=== PATIENT | female | born 1950 | race Caucasian/White ===

== ENCOUNTER 2024-07-27 17:58 | Emergency (ER) | payer MEDICARE ==
--- NOTE | 2024-07-27 18:05 | ED ---
General Adult HPI - General Stated complaint: blood in stool Time Seen by Provider: 07/27/24 18:04 - History of Present Illness Initial comments: Lanie is a 73-year-old female was transferred to our facility from detention after she had an episode of bright red blood per rectum. Patient reports she had a normal bowel movement this morning and then this evening she began feeling crampy abdominal pain worse in the left lower quadrant and then start having loose stools and noted that they were grossly bloody. Staff note that she was also high Po tensive and tachycardic not typical for her. Admitted to an outside hospital [facility] about 1 month ago for bowel obstruction patient is unsure what her treatment was uncertain if she had any b owel resection she does not have an ostomy she did have a PEG tube placed. She has been receiving tube feedings with Jevity 1.5 at 45 mL/h continuous - Related Data Allergies Allergy/AdvReac Type Severity Reaction Status Date / Time Penicillins Allergy Anaphylaxis Verified 07/27/24 19:12 rifampin Allergy Unknown Verified 07/27/24 19:12 Review of Systems ROS Statement: Those systems with pertinent positive or pertinent negative responses have been documented in the HPI. ROS Other: All systems not noted in ROS Statement are negative. General Exam - General Exam Comments Initial Comments: Physical Exam GENERAL: Chronically ill-appearing frail elderly female HENT: Normocephalic, Atraumatic. EYES: PERRL, EOMI PULMONARY: Unlabored respirations. No audible rales rhonchi or wheezing was noted. CARDIOVASCULAR: Tachycardic ABDOMEN: Minimal tenderness in the left lower quadrant Well-healing midline surgical incision consistent with surgery last month PEG tube in place no surrounding erythema no blood PEG tube SKIN: Skin is clear with no lesions or rashes and otherwise unremarkable. : Rectal exam with bright red blood per rectum NEUROLOGIC: Patient is alert and oriented x3 Moving all extremities spontaneously MUSCULOSKELETAL: Diffuse atrophy PSYCHIATRIC: Normal psychiatric evaluation. Course Vital Signs 07/27/24 07/27/24 07/27/24 18:01 18:30 19:00 Temperature 99.4 F Pulse Rate 108 H 113 H 110 H Respiratory 20 17 17 Rate Blood Pressure 97/55 92/52 85/51 O2 Sat by Pulse 100 99 99 Oximetry 07/27/24 19:15 Temperature Pulse Rate 118 H Respiratory 18 Rate Blood Pressure 86/56 O2 Sat by Pulse 99 Oximetry Medical Decision Making - Medical Decision Making Was pt. sent in by a medical professional or institution (, RAJESH, DIE CUTTER APPRENTICE, urgent care, hospital, or detention...) When possible be specific @ -Sent from detention Did you speak to anyone other than the patient for history (EMS, parent, family, police, friend...)? What history was obtained from this source @ -Yes, nurse who assessed patient at detention Did you review nursing and triage notes (agree or disagree)? Why? @ -I reviewed and agree with nursing and triage notes Were old charts reviewed (outside hosp., previous admission, EMS record, old EKG, old radiological studies, urgent care reports/EKG's, detention records)? Report findings @ -Previous labs reviewed Differential Diagnosis (chest pain, altered mental status, abdominal pain women, abdominal pain men, vaginal bleeding, weakness, fever, dyspnea, syncope, headache, dizziness, GI bleed, back pain, seizure, CVA, palpatations, mental health)? @ -Differential GI Bleed: Esophageal varices, aortoenteric fistula, Ryann-Almeida, gastritis, peptic ulcer disease, diverticulosis, inflammatory bowel disease, hemorrhoids, fissure, colitis, malignancy, Meckel's diverticulum, this is not meant to be an all- inclusive list. EKG interpreted by me (3pts min.). @ -As above X-rays interpreted by me (1pt min.). @ -None done CT interpreted by me (1pt min.). @ -No free air U/S interpreted by me (1pt. min.). @ -None done What testing was considered but not performed or refused? (CT, X-rays, U/S, labs)? Why? @ -None What meds were considered but not given or refused? Why? @ -None Did you discuss the management of the patient with other professionals (professionals i.e. RAJESH Dukes, DIE CUTTER APPRENTICE, lab, RT, psych nurse, delinquency prevention social worker, drill doctor, teacher, coastal/harbor defense officer, high risk case manager)? Give summary @ -No Was smoking cessation discussed for >3mins.? @ -No Was critical care preformed (if so, how long)? @ -Yes, 30 minutes Were there social determinants of health that impacted care today? How? (Homelessness, low income, unemployed, alcoholism, drug addiction, transportation, low edu. Level, literacy, decrease access to med. care, alf, rehab)? @ -No Was there de-escalation of care discussed even if they declined (Discuss DNR or withdrawal of care, Hospice)? DNR status @ -No What co-morbidities impacted this encounter? (DM, HTN, Smoking, COPD, CAD, Cancer, CVA, ARF, Chemo, Hep., AIDS, mental health diagnosis, sleep apnea, morbid obesity)? @ -None Was patient admitted / discharged? Hospital course, mention meds given and route, prescriptions, significant lab abnormalities, going to OR and other [facility] [place] info. @ -Discharged Patient was seen and evaluated, history is obtained from the patient during nurse. Physical exam reveals a patient who is pale tachycardic mildly hypotensive with a temperature of 99.4 and left lower quadrant tenderness no gross GI bleed. Labs are obtained hemoglobin is stable white count mildly elevated lactic is mildly elevated. CT scan reveals evidence of colitis. We do not have GI services available today, patient care was discussed with GI physician Dr. Cespedes who agree with plan for transfer for close observation. More hypotensive and decision was made to transfuse due to ongoing blood loss and hemodynamic instability Undiagnosed new problem with uncertain prognosis? @ -Yes, hemorrhagic colitis Drug Therapy requiring intensive monitoring for toxicity (Heparin, Nitro, Insulin, Cardizem)? @ -No Were any procedures done? @ -No Diagnosis/symptom? @ -Colitis Acute, or Chronic, or Acute on Chronic? @ -Acute Uncomplicated (without systemic symptoms) or Complicated (systemic symptoms)? @ -Default Side effects of treatment? @ -No Exacerbation, Progression, or Severe Exacerbation? @ -No Poses a threat to life or bodily function? How? (Chest pain, USA, GA, pneumonia, PE, COPD, DKA, ARF, appy, cholecystitis, CVA, Diverticulitis, Homicidal, Suic idal, threat to staff... and all critical care pts) @ -Potentially due to blood loss - Lab Data Result diagrams: 07/27/24 18:26 07/27/24 18:26 Lab Results 07/27/24 07/27/24 07/27/24 Range/Units 18:26 18:26 18:26 WBC 8.4 (3.8-10.6) k/uL RBC 2.97 L (3.80-5.40) m/uL Hgb 9.0 L (11.4-16.0) gm/dL Hct 28.2 L (34.0-46.0) % MCV 94.8 (80.0-100.0) fL MCH 30.5 (25.0-35.0) pg MCHC 32.1 (31.0-37.0) g/dL RDW 15.7 H (11.5-15.5) % Plt Count 409 (150-450) k/uL MPV 7.3 Neutrophils % 61 % Lymphocytes % 31 % Monocytes % 4 % Eosinophils % 1 % Basophils % 0 % Neutrophils # 5.1 (1.3-7.7) k/uL Lymphocytes # 2.6 (1.0-4.8) k/uL Monocytes # 0.3 (0-1.0) k/uL Eosinophils # 0.1 (0-0.7) k/uL Basophils # 0.0 (0-0.2) k/uL Hypochromasia Slight PT 12.3 (10.0-12.5) sec INR 1.1 (<1.2) APTT 26.2 (22.0-30.0) sec Sodium 131 L (137-145) mmol/L Potassium 4.4 (3.5-5.1) mmol/L Chloride 98 (98-107) mmol/L Carbon Dioxide 28 (22-30) mmol/L Anion Gap 5 mmol/L BUN 12 (7-17) mg/dL Creatinine 0.38 L (0.52-1.04) mg/dL Est GFR (CKD-EPI)AfAm >90 (>60 ml/min/1.73 sqM) Est GFR (CKD-EPI)NonAf >90 (>60 ml/min/1.73 sqM) Glucose 125 H (74-99) mg/dL Plasma Lactic Acid Cruz (0.7-2.0) mmol/L Calcium 8.0 L (8.4-10.2) mg/dL Total Bilirubin 0.4 (0.2-1.3) mg/dL AST 41 H (14-36) U/L ALT 34 (4-34) U/L Alkaline Phosphatase 227 H (38-126) U/L Total Protein 5.8 L (6.3-8.2) g/dL Albumin 2.5 L (3.5-5.0) g/dL Blood Type Blood Type Confirm Blood Type Recheck Bld Type Recheck Status Antibody Screen Crossmatch Spec Expiration Date 07/27/24 07/27/24 07/27/24 Range/Units 18:26 18:26 18:47 WBC (3.8-10.6) k/uL RBC (3.80-5.40) m/uL Hgb (11.4-16.0) gm/dL Hct (34.0-46.0) % MCV (80.0-100.0) fL MCH (25.0-35.0) pg MCHC (31.0-37.0) g/dL RDW (11.5-15.5) % Plt Count (150-450) k/uL MPV Neutrophils % % Lymphocytes % % Monocytes % % Eosinophils % % Basophils % % Neutrophils # (1.3-7.7) k/uL Lymphocytes # (1.0-4.8) k/uL Monocytes # (0-1.0) k/uL Eosinophils # (0-0.7) k/uL Basophils # (0-0.2) k/uL Hypochromasia PT (10.0-12.5) sec INR (<1.2) APTT (22.0-30.0) sec Sodium (137-145) mmol/L Potassium (3.5-5.1) mmol/L Chloride (98-107) mmol/L Carbon Dioxide (22-30) mmol/L Anion Gap mmol/L BUN (7-17) mg/dL Creatinine (0.52-1.04) mg/dL Est GFR (CKD-EPI)AfAm (>60 ml/min/1.73 sqM) Est GFR (CKD-EPI)NonAf (>60 ml/min/1.73 sqM) Glucose (74-99) mg/dL Plasma Lactic Acid Cruz 2.1 H* (0.7-2.0) mmol/L Calcium (8.4-10.2) mg/dL Total Bilirubin (0.2-1.3) mg/dL AST (14-36) U/L ALT (4-34) U/L Alkaline Phosphatase (38-126) U/L Total Protein (6.3-8.2) g/dL Albumin (3.5-5.0) g/dL Blood Type A Negative Blood Type Confirm A Negative Blood Type Recheck No Previous Record Bld Type Recheck Status CABO Indicated Antibody Screen NEGATIVE Crossmatch See Detail Spec Expiration Date 07/30/20242321 Disposition Clinical Impression: Colitis, BRBPR (bright red blood per rectum) Disposition: OTHER INSTITUTION NOT DEFINED Is patient prescribed a controlled substance at d/c from ED?: No Referrals: Kathy Bashir MD [Primary Care Provider] - 1-2 days - Out of Hospital Transfer - Req. Specs Out of Hospital Transfer - Requested Specifics: Other Emergency Center ([facility])
[2024-07-27 18:38] LABS: Basophils % (A) 0 %; Eosinophils # (A) 0.1 k/uL (0-0.7); Eosinophils % (A) 1 %; HCT 28.2 % (34.0-46.0); Hypochromasia Slight; Lymphocytes # (A) 2.6 k/uL (1.0-4.8); Lymphocytes % (A) 31 %; MCH 30.5 pg (25.0-35.0); MCHC 32.1 g/dL (31.0-37.0); MCV 94.8 fL (80.0-100.0); Mean Platelet Volume 7.3; Monocytes # (A) 0.3 k/uL (0-1.0); Monocytes % (A) 4 %; Neutrophils # (A) 5.1 k/uL (1.3-7.7); Neutrophils % (A) 61 %; Platelet Count 409 k/uL (150-450); RBC 2.97 m/uL (3.80-5.40); RDW 15.7 % (11.5-15.5); WBC 8.4 k/uL (3.8-10.6)
[2024-07-27 18:49] LABS: INR 1.1 (<1.2); Partial Thromboplastin Time 26.2 sec (22.0-30.0); Prothrombin Time 12.3 sec (10.0-12.5)
[2024-07-27 18:50] LABS: ALT 34 U/L (4-34); African American GFR (CKD) >90 (>60 ml/min/1.73 sqM); Albumin 2.5 g/dL (3.5-5.0); Anion Gap 5 mmol/L; Blood Urea Nitrogen 12 mg/dL (7-17); Carbon Dioxide 28 mmol/L (22-30); Chloride 98 mmol/L (98-107); Glucose 125 mg/dL (74-99); Non-African American GFR(CKD) >90 (>60 ml/min/1.73 sqM); Sodium 131 mmol/L (137-145); Total Bilirubin 0.4 mg/dL (0.2-1.3); Total Protein 5.8 g/dL (6.3-8.2)
[2024-07-27 19:08] LABS: Potassium 4.4 mmol/L (3.5-5.1)
[2024-07-27 19:09] LABS: AST 41 U/L (14-36); Alkaline Phosphatase 227 U/L (38-126)
[2024-07-27] MEDS: SODIUM CHLORIDE 0.9% 1,000 ML IV ONE (19:25)
[2024-07-27] MEDS: SODIUM CHLORIDE 0.9% 1,000 ML IV STA (19:28)
[2024-07-27 19:33] VITALS: RESP 18
--- NOTE | 2024-07-27 20:07 | CT ---
EXAMINATION TYPE: CT abdomen pelvis w con DATE OF EXAM: 07/27/2024 7:55 PM COMPARISON: None available. CLINICAL INDICATION: Female, 73 years old with history of LLQ pain, GI bleed; recent j tube placement s/p SBO, from [facility] stated that pt had lg amount of blood in brief. TECHNIQUE: Axial CT abdomen pelvis w con;Sagittal and coronal reformats were created on a separate w orkstation. Contrast used:100ml mL of Isovue 300 with IV Contrast, (none if empty) Oral contrast used: without Oral Contrast (none if empty) CT DLP: 793.8 mGycm, Automated exposure control for dose reduction was used. FINDINGS: Partially visualized lower lungs instrument right lower lobe pleural-based atelectasis. Liver unremarkable. Gallbladder unremarkable. Spleen normal size and morphology. No suspicious adrena l gland nodule. Pancreas unremarkable. Mildly dilated CBD measuring 10 mm in diameter without discret e CT evidence of obstructing stone or other lesion. Kidneys enhance symmetrically bilaterally. No hyd ronephrosis or either ureter. No suspicious enhancing renal lesion. Abdominal aorta without aneurysmal dilatation. Celiac artery and SMA are patent. Vaginal pessary julia ce. Uterus otherwise appears unremarkable. There is liquid stool in the rectosigmoid colon suggesting diarrhea. Additionally, rectosigmoid colonic wall thickening and adjacent mesenteric stranding. Scat tered colonic diverticula. No small bowel obstruction. Percutaneous gastrostomy tube visualized termi nating in the gastric lumen. Stomach otherwise unremarkable. No significant free fluid or free air in the abdomen/pelvis. Urinary bladder unremarkable. No pathologic retroperitoneal or mesenteric lympha denopathy. No acute osseous abnormality. Lumbar spine degenerative changes. IMPRESSION: 1. Wall thickening of the rectosigmoid colon with adjacent inflammation suggesting infectious or inf lammatory colitis. Consider outpatient direct visualization/colonoscopy to exclude other etiologies s uch as malignancy which can have a similar appearance. 2. Liquid stool throughout the colon suggesting diarrhea. No small bowel obstruction. 3. Additional nonacute findings as above. [facility], , 07/27/2024 8:05 PM
[2024-07-27 21:02] VITALS: TEMP 99.4
[2024-07-27 21:15] VITALS: BP 88/46; PULSE 118
== END 2024-07-27 21:16 | disposition other institution (70) ==
LOC: EC 17:58
DX: K52.9 Noninfective gastroenteritis and colitis, unspecified (principal); K62.5 Hemorrhage of anus and rectum; Z88.0 Allergy status to penicillin; Z88.8 Allergy status to other drugs, medicaments and biological substances
CPT/HCPCS: 36415; 86900; 86901; 80053; 83605; 85025; 85610; 85730; 86850; 86920; 74177; 99291; 96360; 96361; 36430; P9016; Q9967